=== PATIENT | male | born 1970 | race Caucasian/White ===

== ENCOUNTER 2018-10-29 23:47 | Emergency (ER) | payer OTHER ==
[2018-10-30 00:01] VITALS: BP 155/94
[2018-10-30] MEDS ORDERED: TDAP ADULT 0.5 ML INJ (BOOSTRIX) IM ONE (00:07)
--- NOTE | 2018-10-30 00:07 | EDPHY ---
H & P Time Seen by Provider: 10/29/18 23:59 HPI/ROS: CHIEF COMPLAINT: Right finger laceration HISTORY OF PRESENT ILLNESS: 47-year-old male, left-hand dominant, out-of-date tetanus was at work at [employer], picking up glass glass broke sustaining laceration to his right middle finger PHYSICAL EXAM (Prior to examination, patient consented to physical exam, hands were washed and my usual and customary physical exam procedures followed) 1) GENERAL: Well-developed, well-nourished, alert and oriented. Appears to be in no acute distress. 2) HEAD: Normocephalic 3) HEENT: sclera anicteric 4) LUNGS: Breathing comfortably. 5) SKIN: Right middle digit distal phalanx palmar aspect 1.5 cm skin avulsion 6) MUSCULOSKELETAL: FDP, FDS intact 7) NEUROLOGIC: Two-point discrimination intact Smoking Status: Never smoked Constitutional: Initial Vital Signs Temperature (C) 37.1 C 10/29/18 23:59 Heart Rate 100 10/29/18 23:59 Respiratory Rate 20 10/29/18 23:59 Blood Pressure 155/94 H 10/29/18 23:59 O2 Sat (%) 93 10/29/18 23:59 O2 Delivery Mode Room Air Allergies/Adverse Reactions: No Known Allergies Allergy (Unverified 10/29/18 23:59) Home Medications: Medication Instructions Recorded Blood Pressure Meds 10/29/18 MDM/Departure - MDM Imaging: I viewed and interpreted images myself Procedures: Procedure: Laceration repair. I explained the indications, risks and benefits for both laceration repair and anesthetic administration. Verbal consent was obtained from the patient. The digit was anesthetized using 0.5% bupivicaine without epinephrine digital nerve block. After anesthetic administered the patient was observed for a period of time and had no apparent adverse effects. The wound was cleaned, prepped, draped in normal sterile fashion and explored to its base. No foreign body seen , no foreign bodies palpated. There were no deep structures involved. Patient has a skin avulsion which is dressed with Surgicel resultant hemostasis. - Depart Disposition: Home, Routine, Self-Care Clinical Impression: Avulsion, skin Condition: Good Instructions: Skin Avulsion (ED) Additional Instructions: Return to the ER if you develop redness, swelling, discharge, warmth to the wound, red streaks going up your arm, or any other symptoms that concern you. Stand Alone Forms: Work Comp Follow Up Referrals: Sherif Osborne MD [Primary Care Provider] - 1-2 days without fail
== END 2018-10-30 00:38 | disposition home or self-care (01) ==
DX: S61.202A Unspecified open wound of right middle finger without damage to nail, initial encounter (principal); W25.XXXA Contact with sharp glass, initial encounter; Y92.512 Supermarket, store or market as the place of occurrence of the external cause; Y99.0 Civilian activity done for income or pay